=== PATIENT | male | born 1980 | race American Indian/Alaskan Native ===

== ENCOUNTER 2020-05-03 10:08 | Outpatient (CLI) | payer OTHER ==
--- NOTE | 2020-05-03 13:04 | XRay Report ---
LUMBAR SPINE 3 VIEWS INDICATION / CLINICAL INFORMATION: LOWER BACK PAIN.. COMPARISON: None available. FINDINGS: VERTEBRAE: No acute fracture. No significant malalignment. DISC SPACES / FACET JOINTS:No significant abnormality. PARASPINAL SOFT TISSUES:No significant abnormality. ADDITIONAL FINDINGS: None. Signer Name: Jeffy Rolon MD Signed: 05/03/2020 1:00 PM Workstation Name: [id number]
--- NOTE | 2020-05-03 13:21 | XRay Report ---
Right shoulder-3 views INDICATION: DISABILITY FOR RT SOULDER PAIN.. COMPARISON: None. IMPRESSION: No acute osseous or soft tissue abnormality. No significant DJD. Signer Name: Leon Bucio MD Signed: 05/03/2020 1:16 PM Workstation Name: [id number]
--- NOTE | 2020-05-03 13:22 | XRay Report ---
Bilateral hips-4 total views INDICATION: BILATERAL HIP PAIN FOR DISABILITY.. COMPARISON: None. IMPRESSION: No acute osseous or soft tissue abnormality. No significant DJD. Normal alignment. Signer Name: Leon Bucio MD Signed: 05/03/2020 1:17 PM Workstation Name: [id number]
== END 2020-05-03 10:09 | disposition home or self-care (01) ==
LOC: XRAY 10:08
PROVIDERS: ATTEND Internal Medicine
DX: M54.5 Low back pain (principal); M25.511 Pain in right shoulder; M25.551 Pain in right hip; M25.552 Pain in left hip
CPT/HCPCS: 72100; 73521

== ENCOUNTER 2020-06-17 10:46 | Outpatient (CLI) | payer OTHER ==
--- NOTE | 2020-06-17 15:09 | XRay Report ---
BILATERAL HAND 3 VIEW(S) INDICATION / CLINICAL INFORMATION: BILATERAL HAND PAIN COMPARISON: None available. FINDINGS: BONES / JOINT(S): No acute fracture or subluxation. No significant arthritis. Remote trauma noted of the distal fifth metacarpal on the left. SOFT TISSUES: No significant abnormality. ADDITIONAL FINDINGS: None. Signer Name: Jeffy Rolon MD Signed: 06/17/2020 3:04 PM Workstation Name: [id number]
== END 2020-06-17 10:47 | disposition home or self-care (01) ==
LOC: XRAY 10:46
PROVIDERS: ATTEND Internal Medicine
DX: M79.641 Pain in right hand (principal); M79.642 Pain in left hand